=== PATIENT | male | born 1945 | race Caucasian/White ===

== ENCOUNTER 2019-08-02 12:40 | Emergency (ER) | payer MEDICARE ==
--- NOTE | 2019-08-02 18:03 | ER ---
HISTORY OF PRESENT ILLNESS: A 74-year-old male here after cutting his left forearm. He was using a sharp knife to cut open some plastic that was wrapped around an anchor that he just purchased, it was brand new. He cut toward himself and cut into the left forearm. The patient has been holding pressure to the area stating that it did bleed quite a bit to begin with, now it seems like it has slowed down. He denies any loss of function of the hand or wrist. The patient is not on any anticoagulation medication. OBJECTIVE: GENERAL APPEARANCE: The patient is awake and alert, in no obvious distress. EXTREMITIES: Examining the left forearm reveals a vertical laceration just proximal to the wrist to the lateral side of midline. It is 5.2 cm long. There is a small amount of seepage coming from the distal end of the laceration at this time. DIAGNOSIS: Laceration of the left forearm. TREATMENT PLAN: The site was cleansed with Betadine once more. I used 1% lidocaine with epi to anesthetize the area and then we acquired sterile field. During the cleansing process, it started to bleed a little more. I applied 3 sutures in the middle of the laceration where it was bleeding and this did stop the bleeding. I finished suturing, it required 7 sutures using 4-0 Ethilon. Nursing staff will cleanse the wound after this, apply antibiotic ointment, Telfa, Cara and Coban. The patient is to keep the initial dressing on for at least 24-36 hours, then changing it to a small dressing or a large Band- Aid. He is to keep it covered for 3 or 4 days and then it should be able to be open to air. He is to monitor for any signs of infection. He is current on his tetanus status about 5 years ago he tells us. The sutures should come out in about 10 days. Ezed-bkt-auagazt medications can be used as needed. CRS/MODL /[id number]
== END 2019-08-02 13:44 | disposition home or self-care (01) ==
LOC: LB.ED 12:40
DX: S51.812A Laceration without foreign body of left forearm, initial encounter (principal); W26.0XXA Contact with knife, initial encounter
CPT/HCPCS: 12002; 12032; 99282; 99282-25

== ENCOUNTER 2021-08-19 04:39 | Emergency (ER) | payer OTHER, MEDICARE ==
[2021-08-19] MEDS ORDERED: Ondansetron 4 MG Tab.DIS PO ONE (04:45)
[2021-08-19] MEDS ORDERED: HYDROmorphone 2 MG/ML SDV IVPUSH ONE (05:02)
[2021-08-19] MEDS ORDERED: Acetaminophen/HYDROcodone 325-5 MG Tab ONE (06:00)
== END 2021-08-19 06:20 | disposition home or self-care (01) ==
LOC: LB.ED 04:39
DX: R10.84 Generalized abdominal pain (principal)
CPT/HCPCS: 36415; 74176; 80053; 81001; 83690; 85025; 96374; 99284; A9270; J1170; Q0162; 93010; 99282